=== PATIENT | male | born 1965 | race Hispanic/Latino ===

== ENCOUNTER 2024-01-29 18:32 | Emergency (ER) | payer OTHER, SELFPAY ==
[2024-01-29 18:40] VITALS: BP 123/71
--- NOTE | 2024-01-29 18:56 | ED.GENMED ---
History of Present Illness
General
Chief Complaint: Rabies
Source: patient
Time Seen by Provider: 01/29/24 18:44
History of Present Illness
History of Present Illness:
58yoM with no significant past medical history presenting for a rabies vaccination. Patient had a bat in his home 1 week ago. His cat attacked the bat and his removed the bat from the house. He then noticed a second bat a few days later which
he believes was in the house for a few days. His was able to remove the second bat after the cat again attacked the bat. His and daughter were in the ED yesterday and received rabies vaccinations. He was instructed to go to the ED to also
be started on the vaccine series. Patient denies any known bites or wounds.
Phy Exam
General Physical Exam
General Presentation: well appearing and no apparent distress
General age: appears stated age
General Skin: warm and dry
General Habitus: normal
Pulmonary Exam
Pulmonary Exam: no respiratory distress
[place] Coma Scale
Eye Opening: Spontaneous
Verbal Response: Oriented
Motor Response: Obeys Commands
GCS Total Score: 15
Skin Exam
Skin Exam: normal color and warm/dry
Psychiatric Exam
Psychiatric Exam: normal mood/affect
Course
Orders/Labs/Results
Orders:
Orders
01/29/24 19:02
Rabies Immune Globulin/Pf [HyperRAB] 1,790 unit IM NOW STA
01/29/24 19:15
Rabies Vaccine (Pcec)/Pf [Rabavert Rabies Vacc W-Diluent] 2.5 unit IM .ONCE ONE
Vital Signs
Initial and Last Documented VS:
Initial Vital Signs
Temp Pulse Resp BP Pulse Ox
98.2 F 54 18 123/71 98
01/29/24 18:40 01/29/24 18:40 01/29/24 18:40 01/29/24 18:40 01/29/24 18:40
Last Documented Vital Signs
Temp Pulse Resp BP Pulse Ox
98.2 F 54 18 123/71 98
01/29/24 18:40 01/29/24 18:40 01/29/24 18:40 01/29/24 18:40 01/29/24 18:40
MDM/Problems Addressed
Differential Diagnosis Includes:
58yoM here for initiation of the rabies vaccine series after there were several bats in his home. No bites/wounds that he is aware of. Vitals stable and he is well appearing.
Rabies vaccine and immunoglobulin ordered. He is unable to go to the infusion center for the remainder of his vaccines due to his insurance coverage. He will either return to the ED [facility] the [facility]. Vaccination
schedule given to patient. He was discharged in stable condition.
*Critical Care Note
Total Time (30-74mins, 75-104mins- exclusive of procedures): Not Applicable
ED Attending Note
-
Portions of this chart may have been created with voice recognition software.� Occasional wrong word or��sound alike� substitutions may have occurred due to the inherent limitations of voice recognition software.
Discharge Plan
Departure
Patient Disposition: Home (Routine Discharge)
Date of Disposition: 01/29/24
Time of Disposition: 18:58
Patient with high blood pressure during this ER visit?: No
Discharge Problem:
Need for rabies vaccination
Instructions: Rabies Vaccine CDC Vaccine Information Statement (VIS)
Stand Alone Forms: Rabies Vaccine Post Exp Dosing
Activity Restrictions/Additional Instructions:
Your rabies vaccine series schedule:
Vaccine #2: 02/01/24
Vaccine #3: 02/05/24
Vaccine #4: 02/12/24
Interventions
Interventions:
*Risk Screen - Suicide Last Done: 01/29/24 18:40
*General Assessment Last Done: 01/29/24 18:40
*Neglect/Abuse Screening Last Done: 01/29/24 18:40
Discharge Date and Time
Print Language: MONGOLIAN
[2024-01-29] MEDS: RABAVERT RABIES VACC W-DILUENT 2.5 UNIT IM (19:27)
[2024-01-29] MEDS: HyperRAB 1790 UNIT IM (19:29)
[2024-01-29 19:40] VITALS: BP 134/83
== END 2024-01-29 19:40 | disposition home or self-care (01) ==
LOC: EMR 18:32
PROVIDERS: EMERGENCY PHYSICIAN Emergency Medicine
DX: Z20.3 Contact with and (suspected) exposure to rabies (principal); Z23 Encounter for immunization
CPT/HCPCS: 99284; 90471; 96372; 90375; 90675

== ENCOUNTER 2024-02-01 14:37 | Emergency (ER) | payer OTHER, SELFPAY ==
[2024-02-01 14:39] VITALS: BP 129/72
[2024-02-01 15:00] VITALS: BMI 28.8
--- NOTE | 2024-02-01 15:08 | ED.GENMED ---
History of Present Illness
General
Chief Complaint: Rabies
Source: patient
Time Seen by Provider: 02/01/24 14:56
History of Present Illness
History of Present Illness:
58-year-old male presents emergency department for second rabies vaccine. He was seen in the emergency department 3 days ago for his first. He notes mild diarrhea, without fever, abdominal pain, dizziness, bleeding, chest pain, shortness of
breath, or other complaints.
Past History
Past History
ED Past Medical History: None
ED Past Surgical History: None
Social History
Tobacco: Non-smoker
Alcohol: None
Drug: None
Personal:
Living: with family
Phy Exam
Physical Exam
Physical Exam:
GENERAL: Alert , in no apparent distress
EYE: pupils equal and round
NECK: Supple
ENT: o/p clr, mmm.
CARDIAC: Regular rate and rhythm .
LUNGS: Clear breath sounds bilaterally, no acute respiratory distress, no wheezes/rales/rhonchi
NEUROLOGICAL: Alert and oriented, nonfocal
SKIN: Warm and dry, skin intact.
MUSCULOSKELETAL: No edema, well perfused.
PSYCH: Normal and appropriate interaction.
Course
Orders/Labs/Results
Orders:
Orders
02/01/24 15:08
Rabies Vaccine (Pcec)/Pf [Rabavert Rabies Vacc W-Diluent] 2.5 unit IM .ONCE ONE
Vital Signs
Initial and Last Documented VS:
Initial Vital Signs
Temp Pulse Resp BP Pulse Ox
97.8 F 68 18 129/72 98
02/01/24 14:39 02/01/24 14:39 02/01/24 14:39 02/01/24 14:39 02/01/24 14:39
Last Documented Vital Signs
Temp Pulse Resp BP Pulse Ox
97.8 F 68 18 129/72 98
02/01/24 14:39 02/01/24 14:39 02/01/24 14:39 02/01/24 14:39 02/01/24 14:39
*Critical Care Note
Total Time (30-74mins, 75-104mins- exclusive of procedures): Not Applicable
Update Note
Update Note:
Patient presents to the Emergency Department with need of second rabies vaccine
Number and Complexity of Problems Addressed at the Encounter
� Chronic conditions affecting care:
� Acute Exacerbation and/or Progression of Chronic Illness:
� Differential Diagnosis includes: But not limited to rabies exposure, etc.
Amount and/or Complexity of Data to be Reviewed and Analyzed
� I performed an independent evaluation of and my interpretation is:
EKG:
CT:
Xrays:
Laboratory Studies:
Other:
� Review of other/old records reveals:
� Clinical information was obtained by an independent historian:
� Prescriptions/Medications Considered but not given:
� Further testing considered but not performed:
Risk of Complications and/or Morbidity or Mortality of Patient Management
� Social determinants of health affecting care:
� Discussion with other providers (PCP, Hospitalists, Consultants, etc):
� Escalation of care including admission/observation vs risk of discharge considered: Patient administered second vaccine. He is aware of the continued schedule.
ED Attending Note
-
Portions of this chart may have been created with voice recognition software.� Occasional wrong word or��sound alike� substitutions may have occurred due to the inherent limitations of voice recognition software.
Discharge Plan
Departure
Patient Disposition: Home (Routine Discharge)
Date of Disposition: 02/01/24
Time of Disposition: 15:39
Patient with high blood pressure during this ER visit?: Yes
Condition: Good
Discharge Problem:
Rabies
Instructions: BLOOD PRESSURE, Rabies
Referrals:
NONE,* [Family Provider] -
Stand Alone Forms: Rabies Vaccine Post Exp Dosing
Activity Restrictions/Additional Instructions:
IF YOU DEVELOP REDNESS, WARMTH, FEVER, CHEST PAIN, TROUBLE BREATHING, ABDOMINAL PAIN, OR OTHER WORRISOME SIGNS, GO TO THE ER IMMEDIATELY!
Interventions
Interventions:
*Risk Screen - Suicide Last Done: 02/01/24 14:39
*General Assessment Last Done: 02/01/24 14:39
*Neglect/Abuse Screening Last Done: 02/01/24 14:39
ED- Fall Risk Assessment Last Done: 02/01/24 14:49
Discharge Date and Time
Print Language: FRENCH
[2024-02-01] MEDS: RABAVERT RABIES VACC W-DILUENT 2.5 UNIT IM (16:16)
[2024-02-01 16:34] VITALS: BP 104/62
== END 2024-02-01 16:36 | disposition home or self-care (01) ==
LOC: EMR 14:37
PROVIDERS: EMERGENCY PHYSICIAN Emergency Medicine
DX: Z20.3 Contact with and (suspected) exposure to rabies (principal); Z23 Encounter for immunization; R19.7 Diarrhea, unspecified; R03.0 Elevated blood-pressure reading, without diagnosis of hypertension
CPT/HCPCS: 99281; 90471; 90675